=== PATIENT | male | born 1990 | race Asian ===

== ENCOUNTER → 2021-08-24 | Outpatient (CLI) | payer OTHER, SELFPAY | END | disposition home or self-care (01) | LOC: LABSPEC 15:19 | PROVIDERS: PCP Family Medicine; Visit Provider Otolaryngology Otolaryngology/Facial Plastic Surgery | DX: J02.9 Acute pharyngitis, unspecified (principal) | CPT/HCPCS: 87070; 87077 ==

== ENCOUNTER → 2022-06-27 | Outpatient (CLI) | payer OTHER, SELFPAY | END | disposition home or self-care (01) | LOC: LABSPEC 15:24 | PROVIDERS: PCP Family Medicine; Visit Provider Otolaryngology | DX: J02.9 Acute pharyngitis, unspecified (principal) | CPT/HCPCS: 87070 ==

== ENCOUNTER 2023-11-12 08:14 | Emergency (ER) | payer OTHER, SELFPAY ==
[2023-11-12 08:15] VITALS: BP 126/79; PULSE 76; RESP 14; TEMP 36.2; O2SAT 97; BMI 22.6
--- NOTE | 2023-11-12 08:29 | EX.ED.DYSGE1 ---
HPI History of Present Illness Chief Complaint: Wound Check Detail of Chief Complaint: Bruising Informant: patient Onset/Context/Timing Onset: Days (First noted 2 days ago) Context: Sudden Onset Timing: Continuous Quality: Bruising left lower quadrant and by Current Severity: Mild Maximum Severity: Mild Worsened by: Nothing Relieved by: Nothing Associated Symptoms Associated Symptoms: None Narrative Narrative: Patient is [id number] male who presents because of bruising. He denies any history of trauma. He denies fever chills night sweats. He denies weight loss. He does endorse orthostatic symptoms 2 days ago and this morning upon arising. He denies bleeding of his gums. He denies hematuria. Nuys black or maroon-colored stool. There is family history of leukemia. He denies headache, visual, ocular auditory symptoms. He denies cardiac or respiratory symptoms other than the orthostatic symptoms. He states he does not feel well. A week or 2 ago he did have viral-like symptoms. Prior similar symptoms: No Recent Illness/Hospitalization: No PFSH PFSH Medical History no medical history no medical history Allergy/AdvReac Type Severity Reaction Status Date / Time No Known Allergies Allergy Verified 11/12/23 08:16 Surgical History no surgical history no surgical history Social History (Updated 11/12/23 @ 08:[address] Hermelindo Jung MD) Smoking Status: Never smoker substance use type: does not use ROS ROS ED Constitutional Constitutional ED: Denies chills, fever(s), subjective, sweats or weight loss Eyes Eyes: Denies blurry vision or change in vision ENT ENT ED: Denies ear pain, rhinorrhea or sore throat Cardiovascular Cardiovascular: Reports other Details: Orthostatic symptoms 2 days ago and this morning ; Denies chest pain, palpitations or racing heartbeat Respiratory/Chest Respiratory/Chest: Denies cough, dyspnea or dyspnea on exertion Gastrointestinal Gastrointestinal: Reports abdominal pain; Denies constipation, diarrhea, melena, nausea or vomiting Genitourinary Genitourinary ED: Denies dysuria, hematuria or urinary frequency Musculoskeletal Musculoskeletal: Denies arthralgias, back pain, myalgias or neck pain Integumentary Denies abscess or rash Neurologic Neurologic: Reports weakness; Denies headache(s) or paresthesias Endocrine Endocrinology: Denies cold intolerance or heat intolerance Hematologic/Lymphatic Hematologic/Lymphatic: Reports as per HPI and easy bruising; Denies anemia or lymphadenopathy EXAM Physical Exam Const Vital Signs: 11/12/23 08:15 Temperature 97.2 F L Temperature Source Temporal Pulse Rate 76 Respiratory Rate 14 Blood Pressure 126/79 H Blood Pressure Mean 94 Pulse Ox 97 Oxygen Delivery Method Room Air Positive well nourished and well developed General Appearance ED: well developed and NAD; Negative for pallor HEENT Reports moist mucous membranes HEENT Narrative: Head is atraumatic and normocephalic. Ears normal. Nares patent. Posterior pharynx unremarkable. Eyes PERRL and EOMs intact bilaterally General Eye ED: Negative for pale conjunctiva or scleral icterus Neck no lymphadenopathy, supple and no JVD Chest Wall inspection of chest normal and palpation of chest normal Resp normal respiratory effort and clear to auscultation bilaterally Cardio regular rate, regular rhythm, S1 normal heart sound, S2 normal heart sound and no murmurs GI non-distended and no masses; Negative for normal to inspection, nondistended, normoactive bowel sounds, non-tender or hepatosplenomegaly GI Narrative: There is a bruise noted left lower quadrant. There is a palpable hematoma. There is tenderness in this area. The abdominal exam is otherwise unremarkable. Auscultation: hypoactive bowel sounds Palpation: soft Back/Spine no CVA tenderness Extremity General Extremety ED: Yes tenderness; Negative for edema General Extremity: Negative for edema Neuro oriented x3, CN's II-XII intact bilaterally and no sensory deficits noted Sensorium / Orientation: alert Psych mental status grossly normal Skin no rashes or lesions noted, no wounds and skin turgor normal General Skin Exam: elasticity normal; Negative for jaundice or pallor MDM MDM MDM Narrative Medical decision making narrative: Patient presents with bruising easily. With family history of leukemia will obtain CBC, comprehensive metabolic panel coags. If any of these are abnormal we will contact hematology/oncology that is on-call. This may be a bruise due to blunt trauma that he was unaware of. With viral infection need to rule out thrombocytopenia. Would expect petechiae with thrombocytopenia and not bruising. History & Record Review Additional record(s) reviewed:: No prior records Lab Data Attestation: I reviewed the patient's lab results. Lab results narrative: CBC is normal. Comprehensive metabolic panel shows a glucose of 120 with normal CO2 and anion gap. Patient states he ate a couple minutes prior to presentation. Coags were normal. Labs: Laboratory Results - last 24 hr 11/12/23 08:40 WBC 5.2 RBC 4.73 Hgb 14.3 Hct 42.4 MCV 89.6 MCH 30.2 MCHC 33.7 RDW Std Deviation 41.7 RDW Coeff of Anusha 12.6 Plt Count 270 MPV 10.2 Immature Gran % (Auto) 0.200 Neut % (Auto) 59.7 Lymph % (Auto) 32.6 Motley % (Auto) 4.4 Eos % (Auto) 2.3 Baso % (Auto) 0.8 Absolute Neuts (auto) 3.1 Absolute Lymphs (auto) 1.69 Nucleated RBC % 0 PT 13.5 INR 1.0 APTT 28.0 Sodium 138 Potassium 3.8 Chloride 105 Carbon Dioxide 28.0 Anion Gap 5 BUN 20 H Creatinine 1.28 Estim Creat Clear Calc 90.18 Est GFR (MDRD) Af Amer 84 Est GFR (MDRD) Non-Af 70 BUN/Creatinine Ratio 15.6 Glucose 120 H Calcium 9.2 Total Bilirubin 0.70 AST 15 ALT 25 Alkaline Phosphatase 74 Total Protein 7.6 Albumin 4.1 Globulin 3.5 Albumin/Globulin Ratio 1.2 Treatment and Re-Evaluation :: Patient was informed of the results and discharged home Discharge Plan Triage Chief Complaint: Wound Check ED Provider: Hermelindo Jung Dx/Rx/DC Orders Clinical Impression: Hyperglycemia, Easy bruising Instructions: Bruises (Contusions) Primary Care Provider: Johnnie Pringle Referrals: Johnnie Pringle MD [Primary Care Provider] - 10-14 Days if not better Disposition Disposition: Home, Self Care
[2023-11-12 08:48] LABS: Absolute Lymphocyte Count 1.69 X10^3/uL (0.83-4.51); Absolute Neutrophil Count 3.1 X10^3/uL (2.0-7.7); Basophil# 0.04 X10^3/uL; Basophil% 0.8 % (0-1); Eosinophil# 0.12 X10^3/uL; Eosinophils% 2.3 % (0-5); Hematocrit 42.4 % (40-54); Hemoglobin 14.3 g/dL (13.0-16.5); Lymphocyte # 1.69 X10^3/ul (0.83-4.51); Lymphocyte % 32.6 % (19-41); Mean Corp Hgb Conc 33.7 g/dL (32-36); Mean Corpuscular Hgb 30.2 pg (27.0-32.0); Mean Corpuscular Volume 89.6 fL (80-94); Mean Platelet Vol. 10.2 fl (6.2-12.0); Monocyte# 0.23 X10^3/uL; Monocyte% 4.4 % (0-10); NRBC Flagged by Analyzer 0 % (0-5); Neutrophil % 59.7 % (47-70); Platelet Count 270 K/mm3 (150-450); RBC Distribution Width CV 12.6 % (11.6-14.6); RBC Distribution Width SD 41.7 fl (35.1-43.9); Red Blood Count 4.73 M/mm3 (4.6-6.2); White Blood Count 5.2 K/mm3 (4.4-11.0)
[2023-11-12 09:02] LABS: Prothrombin Time (Protime)PT. 13.5 SECONDS (11.7-14.9)
[2023-11-12 09:05] LABS: ALB/GLOB Ratio 1.2 RATIO (0.9-2.4); AST(SGOT) 15 U/L (15-37); Alanine Aminotransfer ALT/SGPT 25 U/L (16-61); Albumin, Serum 4.1 g/dL (3.2-5.0); Alkaline Phosphatase 74 U/L (45-117); Anion Gap 5 (5-15); BUN 20 mg/dL (7-18); BUN/Creat Ratio 15.6 RATIO (10-20); Calcium,Total 9.2 mg/dL (8.5-10.1); Chloride 105 mmol/L (98-107); Creatinine, Serum 1.28 mg/dL (0.70-1.30); EST Glomerular Filtration Rate 70 mL/min (>60); Est Glom Filt Rate - Afr Amer 84 mL/min (>60); Estimated Creatinine Clearance 90.18 ml/min; Globulin 3.5 g/dL (2.2-4.2); Glucose 120 mg/dL (74-106); Potassium 3.8 mmol/L (3.5-5.1); Protein, Total 7.6 g/dL (6.4-8.2); Sodium Level 138 mmol/L (136-145)
[2023-11-12 09:15] VITALS: BP 118/78; PULSE 64; RESP 16; TEMP 36.4; O2SAT 99
== END 2023-11-12 10:07 | disposition home or self-care (01) ==
PROVIDERS: Emergency Provider Emergency Medicine; PCP Family Medicine; Visit Provider Emergency Medicine
DX: R23.3 Spontaneous ecchymoses (principal); R73.9 Hyperglycemia, unspecified
CPT/HCPCS: 80053; 85025; 85610; 85730; 99283